=== PATIENT | female | born 1960 | race Caucasian/White ===

== ENCOUNTER 2017-09-04 17:24 | Emergency (ER) | payer BC, OTHER ==
[2017-09-04 19:01] VITALS: BP 150/86
--- NOTE | 2017-09-04 19:29 | ED ---
Breast Complaint - HPI Summary HPI Summary: 57 yr old female with left breast pain: Feels burning, itchy near nipple and thinks she feels a lump, and then worse with touching it and with bra on top of it; she has been choosing cloths carefully so that no increase in pressure on the breast area.. Gradual and worse over a week period of time. Her STOGY ROLLER is out of town and cannot see her this week. She came here for evaluation. No fever, chills. Does not feel sick in any way. - Allergy/Home Medications Allergies/Adverse Reactions: Allergies Allergy/AdvReac Type Severity Reaction Status Date / Time morphine Allergy Intermediate Hives Verified 09/04/17 19:02 Home Medications: Home Medications Venlafaxine CAP (NF) [Effexor CAP (NF)] 75 mg PO DAILY 09/04/17 [History Confirmed 09/04/17] PMH/Surg Hx/FS Hx/Imm Hx Cardiovascular History: Denies: Hx Pacemaker/ICD Sensory History: Denies: Hx Hearing Aid Psychiatric History: Denies: Hx Panic Disorder - Surgical History Surgery Procedure, Year, and Place: 2 C SECTIONS. ANGY LEGS - VARICOSE VEIN. Rt WRIST - GANGLION CYST Infectious Disease History: No Infectious Disease History: Denies: Traveled Outside the [place] in Last 30 Days - Family History Known Family History: Positive: Other - breast cancer - Social History Lives: With Family Alcohol Use: Rare Substance Use Type: Reports: None Smoking Status (MU): Never Smoked Tobacco Review of Systems Negative: Fever, Chills Eyes: Negative ENT: Negative Positive: Other - breast pain All Other Systems Reviewed And Are Negative: Yes Physical Exam Triage Information Reviewed: Yes Vital Signs On Initial Exam: Initial Vitals Temp Pulse Resp BP Pulse Ox 98.1 F 67 18 150/86 98 09/04/17 18:54 09/04/17 18:54 09/04/17 18:54 09/04/17 18:54 09/04/17 18:54 Vital Signs Reviewed: Yes Appearance: Positive: Well-Appearing, No Pain Distress Skin: Positive: Warm, Skin Color Reflects Adequate Perfusion Head/Face: Positive: Normal Head/Face Inspection Eyes: Positive: EOMI ENT: Positive: Normal ENT inspection, TMs normal Neck: Positive: Supple, Nontender Respiratory/Lung Sounds: Positive: Clear to Auscultation, Breath Sounds Present , Other - The breasts examined in the presence of nurse Ramón. They appear symmetric in size, shape. No masses in left axilla or tail of breast can be appreciated by my manual exam. SHe has no redness, no discharge from the nipple. There is a pea size shape lump to the left breast upper aerola area at about the 2 oclock position. Cardiovascular: Positive: RRR. Negative: Murmur Abdomen Description: Positive: Nontender Musculoskeletal: Positive: Strength/ROM Intact Neurological: Positive: Sensory/Motor Intact, Alert, Oriented to Person Place, Time, CN Intact II-III Psychiatric: Positive: Normal - [place] Coma Scale Best Eye Response: 4 - Spontaneous Best Motor Response: 6 - Obeys Commands Best Verbal Response: 5 - Oriented Coma Scale Total: 15 Diagnostics - Vital Signs Vital Signs Temp Pulse Resp BP Pulse Ox 09/04/17 18:54 98.1 F 67 18 150/86 98 - Laboratory Lab Statement: Any lab studies that have been ordered have been reviewed, and results considered in the medical decision making process. Breast Pain Course/Dx - Course Course Of Treatment: 57 yr old female who will call her PMD in the morning for further work up of small pea size lump and her discomfort. At this point no evidence of abscess, cellulitis. It is recommended she go to the ER for any worsening symptoms at all. - Diagnoses Provider Diagnoses: Breast pain, left, Lump of breast, left, Hypertension Discharge - Sign-Out/Discharge Documenting (check all that apply): Discharge/Admit/Transfer - Discharge Plan Condition: Good Disposition: HOME Patient Education Materials: Hypertension (ED), Breast Mass (ED) Referrals: Ambrocio Mccrary MD [Primary Care Provider] - 1 Day Additional Instructions: You need to go to the ER for any worsening symptoms. You need to call you primary care doctor first thing in the morning for follow up and further work up of your breast concern. You also need a recheck of your blood pressure in the next couple of days by your primary doctor. - Billing Disposition and Condition Condition: GOOD Disposition: HOME
== END 2017-09-04 19:48 | disposition home or self-care (01) ==
LOC: UCCORT 17:24
DX: N64.4 Mastodynia (principal); N63.0 Unspecified lump in unspecified breast; I10 Essential (primary) hypertension; Z88.5 Allergy status to narcotic agent
CPT/HCPCS: 99211; G0463

== ENCOUNTER 2018-07-02 14:58 | Emergency (ER) | payer OTHER ==
--- OUTSIDE RECORDS SUMMARY | 2018-07-02 15:55 | XMS REPORT | Continuity of Care Document ---
:1960 External Reference #:[id number] Author Name BienvenidoBhavani lassiter Care Team Providers Name Role Phone Ambrocio Mccrary MD Primary Care Physician Unavailable Payers Type Date Identification Numbers Payment Provider Subscriber Policy Number: [id number] Trey Weller PayID: [id number] [address] [place] [address] Effective: 2017 Policy Number: [id number] Trey Weller PayID: [id number] [address] [place] [phone] Advance Directives Description No Information Available Problems Date Description Provider Status Onset: 10/11/2012 Benign hypertensive heart disease without Colette Wall MD Active congestive heart failure Onset: 10/11/2012 Headache Colette Wall MD Active Onset: 12/18/2012 Arthralgia of the ankle and/or foot Colette Wall MD Active Onset: 03/20/2015 Contact dermatitis Colette Wall MD Active Onset: 03/20/2015 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 Wall MD Active inflammation Family History Date Family Member(s) Problem(s) Comments General Hypertension General Diabetes Mellitus, II General Heart Disease General Cancer Mother Breast Cancer Social History Type Date Description Comments Sex Unknown ETOH Use Occasionally consumes alcohol Tobacco Use Start: Unknown Patient has never smoked Smoking Status Reviewed: 09/07/17 Patient has never smoked Exercise Type/Frequency Exercises regularly Guns in Home Yes, Locked Up Allergies, Adverse Reactions, Alerts Date Description Reaction Status Severity Comments 10/11/2012 Morphine Active Severe Medications Medication Date Status Form Strength Qnty SIG Indications Ordering Provider Cephalexin 09/06 Active Capsules 500mg 14cap 1 by mouth N61.0 Janay /Siria s twice a day Demetra with food Rahul Vitamin D3 06/27 Active Capsules 5000Unit 100ca 1 by mouth E55.9 Ambrocio F. /2016 ps every day MD Demetra Aspirin Adult Low 04/19 Active Tablets 81mg 100ta 1 A Will I80.01 Ambrocio F. Dose /2015 DR kasie Mccrary MD Naproxen 03/15 Active Tablets 500mg 60tab 1 by mouth M23.8x1 Ambrocio F. /2015 s twice a day MD Demetra as needed Jobst Active 03/20 Active Misc 4unit Dx venous Elyn 15-20MMHG/Knee /2014 s insufficiei MD Mae High/Closed ncy Toe/Medium Multivital 10/11 Active Tablets Elyn MD Mae Azithromycin 04/25 Hx Tablets 250mg 6tabs 2 by mouth J20.9 Ambrocio F. /2015 today, 1 by MD Deemtra - mouth day 2 05/04 thru Triamcinolone 03/20 Hx Lotion 0.1% 15gm Small Elyn Acetonide Amount bid MD Mae - To Affected 03/15 Etodolac ER 02/19 Hx Tablets 600mg 724.60 Ambrocio F. /2012 ER 24HR MD Demetra - 02/19 Naproxen 02/19 Hx Tablets 500mg 30tab 1 po bid 724.60 Ambrocio F. /2012 s prn MD Demetra - 03/14 Tramadol HCL 02/19 Hx Tablets 50mg 40tab 1 po q 6 724.60 Ambrocio F. /2012 s hours prjohn Mccrary MD - pain if 03/14 rash stop immediately Naproxen 12/18 Hx Tablets 500mg 60tab tab 1 po El s bid with MD Mae - food 02/19 No Active 10/11 Hx Elyn Medications MD Mae - 10/11 Hydrochlorothiazid 10/11 Hx Tablets 25mg 90tab 1 po qd Elyn e s MD Mae - 07/22 Immunizations CPT Code Status Date Vaccine Lot # [id number] Given 02/21/2015 Influenza Virus (Afluria) Split Virus 3 Years Of Age And Older Q2035 Given 03/14/2013 Influenza Virus (Afluria) Split Virus 3 Years Of Age And Older Q2035 Given 03/14/2013 Influenza Virus (Afluria) Split Virus 3 Years Of Age And Older Vital Signs Date Vital Result Comment 06/13/2018 9:36am Height 64 inches 5'4" Weight 169.00 lb BMI (Body Mass Index) 29.0 kg/m2 09/07/2017 2:22pm BP Systolic 132 mmHg BP Diastolic 78 mmHg Height 64 inches 5'4" Weight 69.00 lb BMI (Body Mass Index) 11.8 kg/m2 09/06/2017 3:04pm BP Systolic 168 mmHg BP Diastolic 94 mmHg Height 64 inches 5'4" Weight 169.00 lb BMI (Body Mass Index) 29.0 kg/m2 06/27/2016 11:26am BP Systolic 128 mmHg BP Diastolic 70 mmHg Height 64 inches 5'4" Weight 175.00 lb BMI (Body Mass Index) 30.0 kg/m2 05/04/2016 11:05am BP Systolic 128 mmHg BP Diastolic 70 mmHg 04/25/2016 2:10pm BP Systolic 118 mmHg BP Diastolic 60 mmHg Body Temperature 97.6 F 04/19/2016 3:51pm BP Systolic 112 mmHg BP Diastolic 60 mmHg Body Temperature 99.1 F 04/05/2016 10:06am BP Systolic 130 mmHg BP Diastolic 80 mmHg 03/15/2016 1:56pm BP Systolic 120 mmHg BP Diastolic 62 mmHg 06/02/2015 11:20am BP Systolic 122 mmHg BP Diastolic 60 mmHg Height 64 inches 5'4" Weight 166.00 lb BMI (Body Mass Index) 28.5 kg/m2 03/23/2015 10:15am BP Systolic 122 mmHg BP Diastolic 60 mmHg 03/20/2015 1:32pm BP Systolic 132 mmHg BP Diastolic 80 mmHg 07/22/2014 2:16pm BP Systolic 110 mmHg BP Diastolic 68 mmHg Height 64 inches 5'4" 03/14/2013 1:51pm BP Systolic 118 mmHg BP Diastolic 68 mmHg Height 64 inches 5'4" 02/19/2013 1:59pm BP Systolic 120 mmHg BP Diastolic 60 mmHg Height 64 inches 5'4" 12/21/2012 9:25am BP Systolic 112 mmHg BP Diastolic 78 mmHg 12/18/2012 10:36am BP Systolic 138 mmHg BP Diastolic 70 mmHg 11/22/2012 1:32pm BP Systolic 120 mmHg BP Diastolic 80 mmHg Height 64 inches 5'4" Weight 188.00 lb BMI (Body Mass Index) 32.3 kg/m2 10/11/2012 12:42pm BP Systolic 120 mmHg BP Diastolic 92 mmHg Height 64 inches 5'4" Weight 187.00 lb BMI (Body Mass Index) 32.1 kg/m2 Results Test Date Facility Test Result H/L Range Note CBS 12/19/2016 [facility] White Blood 7.1 K/uL N 3.1-10.7 1 W/Automated [address] [place] [address] [phone] Red Blood Count 4.80 M/uL N 3.90-5.40 Hemoglobin 15.2 gm/dL N 11.6-15.8 Hematocrit 44.4 % N 36.0-46.1 Mean Cell Volume 92.5 fl N 80.9-99.0 Mean Corpuscular HGB 31.7 pg N 25.9-32.7 Mean Corpuscular HGB Conc 34.2 g/dL N 30.8-34.3 Platelet Count 231 K/uL N 150-400 Red Cell Distri Width SD 46.1 fl N 3-47 Red Cell Distri Width %CV 13.9 % N 11.7-14.4 Mean Platelet Volume 10.5 fL N 8.9-12.4 Neut% 65.9 % N 40.4-72.8 Lymph % 26.2 % N 20.0-42.0 Sioux % 6.4 % N 4.3-13.2 Eo% 1.4 % N 0.0-6.6 Bas% 0.1 % N 0.0-1.1 Neut# 4.65 K/uL N 1.8-7.0 Lymph # 1.85 K/uL N 1.0-4.0 Sioux # 0.45 K/uL N 0.3-0.9 Eos # 0.10 K/uL N 0.0-0.5 Baso # 0.01 K/uL N 0.0-0.1 Urinalysis With 12/19/2016 [facility] Urine Color YELLOW Yellow Microscopic [address] [place] [address] [phone] Urine Clarity CLEAR Clear Urine Glucose - Dipstick NEGATIVE mg/dL Negative Urine Bilirubin - Dipstick NEGATIVE Negative Urine Ketone NEGATIVE mg/dL Negative Urine Specific [place] 1.020 N 1.010-1.030 Urine Blood SMALL Abnormal Negative Urine PH 6.0 Low 6.5-7.5 Urine Protein - Dipstick NEGATIVE mg/dL Negative Urine Urobilinogen - Dipstick 0.2 E.U./dL N 0.2-1.0 Urine Nitrite - Dipstick NEGATIVE Negative Urine Leuk Esterase NEGATIVE Negative Urine RBC 2-5 rbc/hpf 0-2 Urine WBC 2-5 wbc/hpf 0-7 Urine Epithelial Cells MODERATE /lpf None Seen 2 Urine Bacteria FEW None Seen Urine Mucus SMALL None Seen Source: URINE, CLEAN CAT <SEE NOTE> 3 Comprehensive Metabolic 12/19/2016 [facility] Glucose 93 mg/dL N 74-[address] [place] [address] [phone] BUN 8 mg/dL N 7-18 Creatinine 0.8 mg/dL N 0.6-1.3 Glom Filtration Rate, Estimate >60 mL/min >60 If >60 mL/min >60 4 BUN/Creat 10.0 ratio Sodium 142 mmol/L N 136-145 Potassium 4.2 mmol/L N 3.5-5.1 Chloride 105 mmol/L N 98-107 Carbon Dioxide 30 mmol/L N 21-32 Anion Gap 7 mEq/L Low 8-16 Calcium 9.0 mg/dL N 8.5-10.1 Total Protein 7.6 g/dL N 6.4-8.2 Albumin 3.7 g/dL N 3.4-5.0 Globulin 3.9 g/dL N 1.9-4.3 Alb/Glob 0.9 ratio Bilirubin,Total 0.6 mg/dL N 0.2-1.0 Sgot/Ast 18 U/L N 15-37 SGPT/Alt 21 U/L N 12-78 Alkaline Phosphatase 94 U/L N 45-117 Laboratory test 12/19/2016 [facility] Lipase 137 U/L N 73-[address] [place] [address] [phone] HCG,Serum (Qualitative) NEGATIVE (Negative) 5 Laboratory 12/19/2016 [facility] Occult POSITIVE Abnormal Negative 6 test finding [address] Blood,[place] [address] [phone] CBC W/ Diff & 06/22/2016 [facility] White Blood 4.4 K /uL N 3.1-10.7 [address] [place] [address] [phone] Red Blood Count 4.68 M/uL N 3.90-5.40 Hemoglobin 14.9 gm/dL N 11.6-15.8 Hematocrit 43.8 % N 36.0-46.1 Mean Cell Volume 93.6 fl N 80.9-99.0 Mean Corpuscular HGB 31.8 pg N 25.9-32.7 Mean Corpuscular HGB Conc 34.0 g/dL N 30.8-34.3 Platelet Count 240 K/uL N 155-360 Red Cell Distri Width SD 47.0 fl N 3-47 Red Cell Distri Width %CV 14.1 % N 11.7-14.4 Mean Platelet Volume 11.3 fL N 8.9-12.4 Neut% 52.1 % N 40.4-72.8 Lymph % 35.6 % N 20.0-42.0 Sioux % 8.2 % N 4.3-13.2 Eo% 3.4 % N 0.0-6.6 Bas% 0.7 % N 0.0-1.1 Neut# 2.30 K/uL N 1.8-7.0 Lymph # 1.57 K/uL N 1.0-4.0 Sioux # 0.36 K/uL N 0.3-0.9 Eos # 0.15 K/uL N 0.0-0.5 Baso # 0.03 K/uL N 0.0-0.1 Comprehensive Metabolic 06/22/2016 [facility] Glucose 88 mg/dL N 74-[address] [place] [address] [phone] BUN 15 mg/dL N 7-18 Creatinine 0.8 mg/dL N 0.6-1.3 Glom Filtration Rate, Estimate >60 mL/min >60 If >60 mL/min >60 8 BUN/Creat 18.7 ratio Sodium 143 mmol/L N 136-145 Potassium 4.1 mmol/L N 3.5-5.1 Chloride 106 mmol/L N 98-107 Carbon Dioxide 30 mmol/L N 21-32 Anion Gap 7 mEq/L Low 8-16 Calcium 8.8 mg/dL N 8.5-10.1 Total Protein 7.4 g/dL N 6.4-8.2 Albumin 3.7 g/dL N 3.4-5.0 Globulin 3.7 g/dL N 1.9-4.3 Alb/Glob 1.0 ratio Bilirubin,Total 0.6 mg/dL N 0.2-1.0 Sgot/Ast 19 U/L N 15-37 SGPT/Alt 28 U/L N 12-78 Alkaline Phosphatase 79 U/L N 45-117 LDL Cholesterol 06/22/2016 [facility] Cholesterol 247 mg/dL High <200 [address] [place] [address] [phone] Triglycerides 79 mg/dL <150 10 HDL Cholesterol 76 mg/dL >40 11 LDL-Cholesterol 155 mg/dL < 100 12 Laboratory test 06/22/2016 [facility] Thyroid Stim 1.31 uIU/mL N 0.30-4.[address] Hormone [place], [place] [id number] [phone] Free T4 0.87 ng/dL N 0.76-1.46 Laboratory 06/22/2016 [facility] Vitamin 28.1 Low 30.0-100.0 13 test finding [address] D,25-Hydroxy ng/[place] [address] [phone] Laboratory 04/05/2016 [facility] C-Reactive 1.29 N <3.0 14 test finding [address] Protein,Cardiac mg/[place] [address] [phone] Uric Acid 3.7 mg/dL N 2.6-6.0 Rheumatoid Factor Screen < 10.0 IU/mL N 0.0-15.0 CBS W/Automated 04/05/2016 [facility] White Blood 6.0 K/uL N 3.1-10.[address] [place] [address] [phone] Red Blood Count 4.80 M/uL N 3.90-5.40 Hemoglobin 15.0 gm/dL N 11.6-15.8 Hematocrit 44.7 % N 36.0-46.1 Mean Cell Volume 93.1 fl N 80.9-99.0 Mean Corpuscular HGB 31.3 pg N 25.9-32.7 Mean Corpuscular HGB Conc 33.6 g/dL N 30.8-34.3 Platelet Count 284 K/uL N 155-360 Red Cell Distri Width SD 46.0 fl N 3-47 Red Cell Distri Width %CV 13.8 % N 11.7-14.4 Mean Platelet Volume 11.5 fL N 8.9-12.4 Neut% 50.4 % N 40.4-72.8 Lymph % 39.1 % N 17.0-46.1 Sioux % 6.4 % N 4.3-13.2 Eo% 3.3 % N 0.0-6.6 Bas% 0.8 % N 0.0-1.1 Neut# 3.01 K/uL N 1.8-7.0 Lymph # 2.34 K/uL N 1.8-7.0 Sioux # 0.38 K/uL N 0.3-0.9 Eos # 0.20 K/uL N 0.0-0.5 Baso # 0.05 K/uL N 0.0-0.1 Laboratory 04/05/2016 [facility] Sedimentation 4 mm/ hr N 0-30 test finding [address] Rate [place], [place] [id number] [phone] Hepatitis C 04/05/2016 [facility] Hepatitis C Nonreactive N Nonreactive Antibody [address] Antibody [place], [place] [address] [phone] Signal/Cutoff ratio < 0.02 N <0.80 15 Laboratory 04/05/2016 [facility] Anti-Nuclear Negative N Negative 16 test finding [address] Antibodies AU/[place] [address] Direct [phone] Basic 05/30/2015 [facility] Glucose 89 mg/dL 74- [address] Panel [place], [place] [address] [phone] BUN 12 mg/dL 7-18 Creatinine 0.7 mg/dL 0.6-1.3 Glom Filtration Rate, Estimate >60 mL/min >60 If >60 mL/min >60 17 BUN/Creat 17.1 ratio Sodium 139 mmol/L 136-145 Potassium 4.0 mmol/L 3.5-5.1 Chloride 105 mmol/L 98-107 Carbon Dioxide 30 mmol/L 21-32 Anion Gap 4 mEq/L Low 8-16 Calcium 8.5 mg/dL 8.5-10.1 LDL Cholesterol 05/30/2015 [facility] Cholesterol 183 mg/dL <200 [address] [place] [address] [phone] Triglycerides 88 mg/dL <150 19 HDL Cholesterol 64 mg/dL >40 20 LDL-Cholesterol 101 mg/dL < 100 21 CBS W/Automated 05/30/2015 [facility] White Blood 4.4 K/uL 3.1-10.[address] Count [place], [place] [address] [phone] Red Blood Count 4.59 M/uL 3.90-5.40 Hemoglobin 14.4 gm/dL 11.6-15.8 Hematocrit 42.7 % 36.0-46.1 Mean Cell Volume 93.0 fl 80.9-99.0 Mean Corpuscular HGB 31.4 pg 25.9-32.7 Mean Corpuscular HGB Conc 33.7 g/dL 30.8-34.3 Platelet Count 232 K/uL 155-360 Red Cell Distri Width SD 45.2 fl 3-47 Red Cell Distri Width %CV 13.6 % 11.7-14.4 Mean Platelet Volume 10.6 fL 8.9-12.4 Neut% 50.7 % 40.4-72.8 Lymph % 40.0 % 17.0-46.1 Sioux % 6.3 % 4.3-13.2 Eo% 2.5 % 0.0-6.6 Bas% 0.5 % 0.0-1.1 Neut# 2.24 K/uL 1.8-7.0 Lymph # 1.77 K/uL Low 1.8-7.0 Sioux # 0.28 K/uL Low 0.3-0.9 Eos # 0.11 K/uL 0.0-0.5 Baso # 0.02 K/uL 0.0-0.1 Laboratory 05/30/2015 [facility] Vitamin 20.8 Low 30.0-100.0 22 test finding [address] D,25-Hydroxy ng/[place] [address] [phone] Laboratory 05/30/2015 [facility] Thyroid Stim 1.30 0.36-3.74 test finding [address] Hormone uIU/[place] [address] [phone] Free T4 0.82 ng/dL 0.76-1.46 Laboratory test 08/22/2013 [facility] Polyp Colon And/ Or See Note [address] [place] [address] [phone] Laboratory test 12/18/2012 [facility] Sedimentation Rate 7 mm/hr 0-[address] [place] [address] [phone] CBC W/ Diff & 12/18/2012 [facility] White Blood Count 5.4 K/uL 3.1-[address] 0[address]7 [place] [address] [phone] Red Blood Count 4.65 M/uL 3.90-5.40 Hemoglobin 14.5 gm/dL 11.6-15.8 Hematocrit 42.9 % 36.0-46.1 Mean Cell Volume 92.3 fl 80.9-99.0 Mean Corpuscular HGB 31.2 pg 25.9-32.7 Mean Corpuscular HGB Conc 33.8 g/dL 30.8-34.3 Platelet Count 257 K/uL 155-360 Red Cell Distri Width SD 44.9 fl 3-47 Red Cell Distri Width %CV 13.5 % 11.7-14.4 Mean Platelet Volume 10.6 fL 8.9-12.4 Neut% 57.4 % 40.4-72.8 Lymph % 31.7 % 17.0-46.1 Sioux % 8.0 % 4.3-13.2 Eo% 2.0 % 0.0-6.6 Bas% 0.9 % 0.0-1.1 Neut# 3.09 K/uL 1.0-7.0 Lymph # 1.71 K/uL 0.8-3.4 Sioux # 0.43 K/uL 0.3-0.9 Eos # 0.11 K/uL 0.0-0.5 Baso # 0.05 K/uL 0.0-0.1 Lyme Igg & Igm By 12/18/2012 [facility] Lyme AB Igg By . Western Blot [address] [place] [place] [address] [phone] P93 AB Absent . P66 AB Absent . P58 AB Absent . P45 AB Absent . P41 AB Absent . P39 AB Absent . P30 AB Absent . P28 AB Absent . P23 AB Absent . P18 AB Absent . Lyme Igg WB Interpretation Negative . 24 Lyme AB Igm By Western Blot . P41 AB Absent . P39 AB Absent . P23 AB Absent . Lyme Igm WB Interpretation Negative . 25 CBS W/Automated 11/14/2012 [facility] White Blood 5.2 K/uL 3.1-10.[address] Count [place], [place] [address] [phone] Red Blood Count 4.79 M/uL 3.90-5.40 Hemoglobin 14.9 gm/dL 11.6-15.8 Hematocrit 44.6 % 36.0-46.1 Mean Cell Volume 93.1 fl 80.9-99.0 Mean Corpuscular HGB 31.1 pg 25.9-32.7 Mean Corpuscular HGB Conc 33.4 g/dL 30.8-34.3 Platelet Count 253 K/uL 155-360 Red Cell Distri Width SD 44.4 fl 3-47 Red Cell Distri Width %CV 13.3 % 11.7-14.4 Mean Platelet Volume 11.2 fL 8.9-12.4 Neut% 51.3 % 40.4-72.8 Lymph % 34.8 % 17.0-46.1 Sioux % 8.5 % 4.3-13.2 Eo% 4.4 % 0.0-6.6 Bas% 1.0 % 0.0-1.1 Neut# 2.65 K/uL 1.0-7.0 Lymph # 1.80 K/uL 0.8-3.4 Sioux # 0.44 K/uL 0.3-0.9 Eos # 0.23 K/uL 0.0-0.5 Baso # 0.05 K/uL 0.0-0.1 Laboratory test 11/14/2012 [facility] Bilirubin, Direct 0.1 mg/dL 0.1-0.[address] [place] [address] [phone] Thyroid Stim Hormone 1.67 uIU/mL 0.49-4.67 Free T4 1.03 ng/dL 0.71-1.85 Comprehensive Metabolic 11/14/2012 [facility] Glucose 91 mg/dL 76-[address] [place] [address] [phone] BUN 12 mg/dL 5-23 Creatinine 0.9 mg/dL 0.5-1.4 Glom Filtration Rate, Estimate >60 mL/min >60 If >60 mL/min >60 26 BUN/Creat 13.3 ratio Sodium 142 mmol/L 136-145 Potassium 3.8 mmol/L 3.5-5.1 Chloride 103 mmol/L 98-107 Carbon Dioxide 28 mEq/L 18-29 Anion Gap 15 mEq/L 8-16 Calcium 8.9 mg/dL 8.5-10.1 Total Protein 7.7 g/dL 6.3-8.0 Albumin 3.8 g/dL 3.5-5.0 Globulin 3.9 g/dL 1.9-4.3 Alb/Glob 1.0 ratio Bilirubin,Total 0.7 mg/dL 0.2-1.2 Sgot/Ast 15 U/L Low 16-40 SGPT/Alt 25 U/L Low 30-65 Alkaline Phosphatase 94 U/L 50-136 Laboratory test 11/14/2012 [facility] Vitamin 28.8 Low 30.0-100.0 [address] D,25-Hydroxy ng/[place] [address] [phone] LDL Cholesterol 11/14/2012 [facility] Cholesterol 210 High 120-[address] mg/[place] [address] [phone] Triglycerides 100 mg/dL 16-231 HDL Cholesterol 62 mg/dL 29-83 LDL-Cholesterol 128 mg/dL 62-185 1 DIARRHEA, PASSING BLOOD, ABD PAIN 2 POSSIBLE UROGENITAL CONTAMINATION. 3 URINE, CLEAN CATCH 4 Note: Persistent reduction for 3 months or more in an eGFR <60 mL/min/1.73 m2 defines CKD. Patients with eGFR values >/=60 mL/min/1.73 m2 may also have CKD if evidence of persistent proteinuria is present. The original MDRD equation for estimated GFR is not valid for patients less than 18 years of age. Additional information may be found at www.kdoqi.org. 5 Method: Quidel QuickVue One-Step Immunoassay 6 Method: [employer] Hemoccult Card 7 I11.9 E78.2 8 Note: Persistent reduction for 3 months or more in an eGFR <60 mL/min/1.73 m2 defines CKD. Patients with eGFR values >/=60 mL/min/1.73 m2 may also have CKD if evidence of persistent proteinuria is present. The original MDRD equation for estimated GFR is not valid for patients less than 18 years of age. Additional information may be found at www.kdoqi.org. 9 Reference Guidelines*: Desirable: ........... < 200 mg/dL Borderline High: ..... 200-239 mg/dL High: ................ >=240 mg/dL * The National Cholesterol Education Program (NCEP) 10 Reference Guidelines*: Normal: ............. < 150 mg/dL Borderline High: .... 150-199 mg/dL High: ............... 200-499 mg/dL Very High: .......... > 500 mg/dL * Source: National Cholesterol Education Program (NCEP) 11 Reference Guidelines*: Low HDL: ..... < 40 mg/dL Normal: ..... 40-60 mg/dL Desirable: ... > 60 mg/dL *The National Cholesterol Education Program(NCEP) 12 Reference Guidelines*: Optimal:........... <100 mg/dL Near Optimal....... 100-129 mg/dL Borderline High.... 130-159 mg/dL High............... 160-189 mg/dL Very High.......... >=190 mg/dL * Source: National Cholesterol Education Program (NCEP) 13 Vitamin D deficiency has been defined by the [place] of [employer] and an Endocrine Society practice guideline as a level of serum 25-OH vitamin D less than 20 ng/mL (1,2). The Endocrine Society went on to further define vitamin D insufficiency as a level between 21 and 29 ng/mL (2). 1. IOM ([place] [employer]). 2010. Dietary reference intakes for calcium and D. [place]: The National Academies Press. 2. Chuy MF, Makenzie FISHER, Jama LANG, et al. Evaluation, treatment, and prevention of vitamin D deficiency: an Endocrine Society clinical practice guideline. JCEM. 2010; 96(7):1911-30. Performed at: - [facility] [address] [id number] Aerotriangulation Specialist: Laura Gregory MD, Phone: [phone] W46.0XXD M23.8X1 I11.9 15 Antibodies to HCV not detected; does not exclude early acute HCV infection. 16 Performed at: [facility] [address] [id number] Aerotriangulation Specialist: Laura Gregory MD, Phone: [phone] 17 Note: Persistent reduction for 3 months or more in an eGFR <60 mL/min/1.73 m2 defines CKD. Patients with eGFR values >/=60 mL/min/1.73 m2 may also have CKD if evidence of persistent proteinuria is present. The original MDRD equation for estimated GFR is not valid for patients less than 18 years of age. Additional information may be found at www.kdoqi.org. 18 Reference Guidelines*: Desirable: ........... < 200 mg/dL Borderline High: ..... 200-239 mg/dL High: ................ >=240 mg/dL * The National Cholesterol Education Program (NCEP) 19 Reference Guidelines*: Normal: ............. < 150 mg/dL Borderline High: .... 150-199 mg/dL High: ............... 200-499 mg/dL Very High: .......... > 500 mg/dL * Source: National Cholesterol Education Program (NCEP) 20 Reference Guidelines*: Low HDL: ..... < 40 mg/dL Normal: ..... 40-60 mg/dL Desirable: ... > 60 mg/dL *The National Cholesterol Education Program(NCEP) 21 Reference Guidelines*: Optimal:........... <100 mg/dL Near Optimal....... 100-129 mg/dL Borderline High.... 130-159 mg/dL High............... 160-189 mg/dL Very High.......... >=190 mg/dL * Source: National Cholesterol Education Program (NCEP) 22 Vitamin D deficiency has been defined by the [place] [employer] and an Endocrine Society practice guideline as a level of serum 25-OH vitamin D less than 20 ng/mL (1,2). The Endocrine Society went on to further define vitamin D insufficiency as a level between 21 and 29 ng/mL (2). 1. IOM ([place] [employer]). 2010. Dietary reference intakes for calcium and D. [place]: The National Academies Press. 2. Chuy MF, Makenzie [place], Jama LANG, et al. Evaluation, treatment, and prevention of vitamin D deficiency: an Endocrine Society clinical practice guideline. JCEM. 2010; 96(7):1911-30. Performed at: RN - [facility] [address] [id number] Aerotriangulation Specialist: Laura Gregory MD, Phone: [phone] OPERATION/PROCEDURE Colonoscopy DIAGNOSIS: "SIGMOID COLON, POLYPECTOMY": EARLY HYPERPLASTIC POLYPS. Bekah GROSS "SIGMOID POLYPS". The specimen is received in an appropriately labeled container. This contains three rounded shukla colored pieces of soft tissue measuring up to 0.5 cm.; filtered and submitted in toto within a single cassette. HW/clf MICROSCOPIC Sections show colonic mucosa with tubular glands lined by goblet type columnar cells with increased mucin production. The glands have an incomplete stellate appearance. PRE OPERATIVE DIAGNOSIS Screening colonoscopy REVIEW CODE CODE: I Signed Electronically signed ARABELLA ASHLEY MD 08/26/13 [id number] 24 Positive: 5 of the following Borrelia-specific bands: 18,23,28,30,39,41,45,58, 66, and 93. Negative: No bands or banding patterns which do not meet positive criteria. 25 Note: An equivocal or positive EIA result followed by a negative Western Blot result is considered NEGATIVE. An equivocal or positive EIA result followed by a positive Western Blot is considered POSITIVE by the CDC. Positive: 2 of the following bands: 23,39 or 41 Negative: No bands or banding patterns which do not meet positive criteria. Criteria for positivity are those recommended by CDC/ASTPHLD. p23=Osp C, q28=uwrkfmiby Note: Sera from individuals with the following may cross react in the Lyme Western Blot assays: other spirochetal diseases (periodontal disease, leptospirosis, relapsing fever, yaws, and pinta); connective autoimmune (Rheumatoid Arthritis and Systemic Lupus Erythematosus and also individuals with Antinuclear Antibody); other infections ([place] Spotted Fever; Nik-Hernandez Virus, and Cytomegalovirus). Performed at: [address] [id number] Aerotriangulation Specialist: Laura Gregory MD, Phone: [phone] 26 Note: Persistent reduction for 3 months or more in an eGFR <60 mL/min/1.73 m2 defines CKD. Patients with eGFR values >/=60 mL/min/1.73 m2 may also have CKD if evidence of persistent proteinuria is present. The original MDRD equation for estimated GFR is not valid for patients less than 18 years of age. Additional information may be found at www.kdoqi.org. 27 Vitamin D deficiency has been defined by the [place] of [employer] and an Endocrine Society practice guideline as a level of serum 25-OH vitamin D less than 20 ng/mL (1,2). The Endocrine Society went on to further define vitamin D insufficiency as a level between 21 and 29 ng/mL (2). 1. IOM ([place] of [employer]). 2010. Dietary reference intakes for calcium and D. [place]: The National Academies Press. 2. Chuy MF, Makenzie FISHER, Jama LANG, et al. Evaluation, treatment, and prevention of vitamin D deficiency: an Endocrine Society clinical practice guideline. JCEM. 2010; 96(7):1911-30. Performed at: RN - [facility] [address] [id number] Aerotriangulation Specialist: Laura Gregory MD, Phone: [phone] Procedures Date Code Description Status 06/22/2016 24262 Spirometry Graphic Record/Max Voluntary Vent Completed 06/22/2016 07692 EKG-Tracing & Report Completed 06/21/2016 06652 Holter Monitor Office Completed 06/09/2016 76322 Dxa Bone Density [employer] Vertebral Fracture Completed Assessment 06/09/2016 006226989 Bone Mineral Density Test Completed 06/06/2016 26982 Non-Invcorrotid/Comp /Bilat Study Completed 06/06/2016 83679 Echocardiography Completed 06/02/2015 48436 Echocardiography Completed 05/27/2015 65791 Non-Invcorrotid/Comp /Bilat Study Completed 05/21/2015 49957 Echocardiography Completed 05/21/2015 61284 Holter Monitor Office Completed 05/21/2015 94793 EKG-Tracing & Report Completed 05/21/2015 05595 [employer]xa [employer] Vertebral Fracture Completed Assessment 08/22/2013 46069171 Colonoscopy Completed 03/07/2013 55378 Bone Density Completed 12/18/2012 80167 Non/Inv/Extremities. Dop/Venous Flow Global Fee Completed Encounters Type Date Location Provider Dx Diagnosis Office Visit 09/07/2017 Main Office Janay Mccrary M.D. N61.0 Mastitis without 2:15p abscess Office Visit 09/06/2017 Main Office Janay Mccrary M.D. N61.0 Mastitis without 3:00p abscess N63.22 Unspecified lump in the left breast, upper inner quadrant Office Visit 06/27/2016 11:20a Main Office Ambrocio Mccrary, E78.2 Mixed hyperlipidemia I34.0 Nonrheumatic mitral (valve) insufficiency I65.23 Occlusion and stenosis of bilateral carotid arteries E55.9 Vitamin D deficiency, unspecified Office Visit 05/04/2016 10:40a Main Office Ambrocio Mccrary I80.01 Phlebitis and thombophlb of superfic vessels of r low extrem M19.90 Unspecified osteoarthritis, unspecified site Office Visit 04/25/2016 2:10p Main Office Ambrocio Mccrary, J20.9 Acute bronchitis, MD unspecified I80.01 Phlebitis and thombophlb of superfic vessels of r low extrem I11.9 Hypertensive heart disease without heart failure Office Visit 04/05/2016 10:00a Main Office Ambrocio Mccrary, M23.8x1 Other internal MD derangements of right knee Office Visit 03/15/2016 1:50p Main Office Ambrocio Mccrary, M23.8x1 Other internal MD derangements of right knee I11.9 Hypertensive heart disease without heart failure Office Visit 06/02/2015 11:20a Main Office Ambrocio Mccrary, M81.0 Age- related MD osteoporosis w/o current pathological fracture I34.0 Nonrheumatic mitral (valve) insufficiency I11.9 Hypertensive heart disease without heart failure I83.11 Varicose veins of right lower extremity with inflammation L30.9 Dermatitis, unspecified Office Visit 04/20/2015 11:30a Main Office Ambrocio Mccrary I83.11 Varicose veins of right lower extremity with inflammation L30.9 Dermatitis, unspecified Office Visit 03/23/2015 10:00a Main Office Ambrocio Mccrary I83.11 Varicose veins of right lower extremity with inflammation L30.9 Dermatitis, unspecified Office Visit 03/20/2015 1:30p Main Office Colette Wall MD L30.9 Dermatitis, unspecified I83.11 Varicose veins of right lower extremity with inflammation Office Visit 07/22/2014 2:10p Main Office Ambrocio Mccrary MD GENERAL General 300.02 Anxiety Disorder Generalized 784.00 Headache 627.2 Menopausal Or Female Climacteric State, Symptomatic 272.4 Hyperlipidemia Other Unspec 785.2 Murmur Cardiac Undiagnosed Office Visit 03/14/2013 1:45p Main Office Colette Wall MD 724.60 Lumbar Disc Disease 733.90 Osteopenia Unspec V04.81 Need For Prophylactic Vaccination & Inoculation/Influenza GENERAL General Office Visit 02/19/2013 1:50p Main Office Ambrocio Mccrary MD 724.60 Lumbar Disc Disease 847.30 Low Back Strain Office Visit 12/21/2012 9:15a Main Office Colette Wall MD 719.47 Pain Joint Ankle & Foot 454.90 Varicose Veins-Lower Extremities GENERAL General Office Visit 12/18/2012 10:15a Main Office Colette Wall MD 719.47 Pain Joint Ankle & Foot 709.90 Skin Lesion/Lesions GENERAL General Office Visit 11/22/2012 1:30p Main Office Colette Wall MD 402.10 Hypertensive Heart Disease Benign W/O Heart Failure 784.0 Headache 272.4 Hyperlipidemia Other Unspec V72.2 Examination Dental V72.0 Examination Eyes & Vision V70.0 Examination General Medical Routine AT Health Care Facility 268.9 Vitamin D Deficiency Unspec GENERAL General Office Visit 10/11/2012 12:45p Main Office Colette Wall MD 402.10 Hypertensive Heart Disease Benign W/O Heart Failure 784.0 Headache GENERAL General Plan of Treatment 09/07/2017 - Janay Mccrary M.D.N61.0 Mastitis without abscessComments: antibiotics over weekend and refer to [facility] if not better
[2018-07-02 16:24] VITALS: BP 128/86
--- NOTE | 2018-07-02 16:25 | UC ---
Throat Pain/Nasal David HPI - HPI Summary HPI Summary: 58-year-old female comes in with a chief complaint of right tonsillar swelling and pain. Been going on about 2 days. She hasn't had some difficulty swallowing for the last several weeks or months. She feels like she has are times swallowing in the back of her throat. She has a history of tonsillar stones. No fevers. She is able to eat and drink. No complaint of any inability to breathe. - History of Current Complaint Stated Complaint: SWOLLEN TONSIL Time Seen by Provider: 07/02/18 16:07 Hx Last Menstrual Period: AUGUST 27, 2012 - Allergies/Home Medications Allergies/Adverse Reactions: Allergies Allergy/AdvReac Type Severity Reaction Status Date / Time morphine Allergy Intermediate Hives Verified 07/02/18 16:24 PMH/Surg Hx/FS Hx/Imm Hx Previously Healthy: Yes - Surgical History Surgical History: Yes Surgery Procedure, Year, and Place: 2 C SECTIONS. ANGY LEGS - VARICOSE VEIN. Rt WRIST - GANGLION CYST - Family History Known Family History: Positive: Other - breast cancer - Social History Alcohol Use: Rare Substance Use Type: None Smoking Status (MU): Never Smoked Tobacco Review of Systems All Other Systems Reviewed And Are Negative: Yes Constitutional: Positive: Negative Skin: Positive: Negative Eyes: Positive: Negative ENT: Positive: Sore Throat Respiratory: Positive: Negative. Negative: Shortness Of Breath Cardiovascular: Positive: Negative Gastrointestinal: Positive: Negative Motor: Positive: Negative Neurovascular: Positive: Negative Musculoskeletal: Positive: Negative Neurological: Positive: Negative Psychological: Positive: Negative Physical Exam Triage Information Reviewed: Yes Appearance: Well-Appearing, No Pain Distress, Well-Nourished Vital Signs Reviewed: Yes Eye Exam: Normal Eyes: Positive: Conjunctiva Clear ENT: Positive: TMs normal, Tonsillar swelling - right, Tonsillar exudate - right , Uvula midline - No peritonsillar abscess on exam Neck exam: Normal Neck: Positive: Supple Respiratory: Positive: Lungs clear, Normal breath sounds, No respiratory distress Cardiovascular: Positive: RRR Musculoskeletal Exam: Normal Musculoskeletal: Positive: Strength Intact, ROM Intact Neurological Exam: Normal Neurological: Positive: Alert, Muscle Tone Normal Psychological Exam: Normal Psychological: Positive: Age Appropriate Behavior Skin Exam: Normal Throat Pain/Nasal Course/Dx - Course Course Of Treatment: We will treat with Augmentin. Overall, due to the difficulty swallowing for several months, the plan is to follow-up with Dr. Leary the ENT. Patient reports that she's been seen Dr. Leary and the plastic past and prefers to follow-up with him. If she worsens prior that time that she needs reevaluation right away. - Differential Dx/Diagnosis Provider Diagnosis: Tonsillitis, Tonsillolith Discharge - Sign-Out/Discharge Documenting (check all that apply): Patient Departure All imaging exams completed and their final reports reviewed: No Studies - Discharge Plan Condition: Stable Disposition: HOME Prescriptions: Amoxicillin/Clavulanate TAB* [Augmentin TAB 875*] 875 mg PO BID #20 tab Patient Education Materials: Tonsillitis (ED) Referrals: Ambrocio Mccrary MD [Primary Care Provider] - Andres Leary MD [Medical Doctor] - Additional Instructions: FOLLOW UP WITH ENT, DR LEARY. GET RECHECKED FOR ANY WORSENING OF YOUR CONDITION OR QUESTIONS OR CONCERNS. - Billing Disposition and Condition Condition: STABLE Disposition: Home
== END 2018-07-02 16:39 | disposition home or self-care (01) ==
LOC: UCCORT 14:58
DX: J03.90 Acute tonsillitis, unspecified (principal); Z88.5 Allergy status to narcotic agent
CPT/HCPCS: 99212; G0463

== ENCOUNTER 2018-11-06 10:07 | Emergency (ER) | payer OTHER ==
[2018-11-06 10:30] VITALS: BP 145/87
[2018-11-06] MEDS ORDERED: Albuterol 2.5 MG/3 ML NEB.SOL* (0.083%) INH ONE (11:09)
--- NOTE | 2018-11-06 11:09 | UC ---
General HPI - HPI Summary HPI Summary: pt c/o cough x 6 months. recently raising green and occasional black sputum in am upon waking. no fever, chills or weight loss. non smoker. prior hx asthma but had been doing better [place]. works as stylist and cleans homes. "feels similar to the asthma" - History of Current Complaint Chief Complaint: UCRespiratory Stated Complaint: COUGH Time Seen by Provider: 11/06/18 11:00 Hx Obtained From: Patient Hx Last Menstrual Period: AUGUST 27, 2012 Onset/Duration: Gradual Onset Timing: Constant Pain Intensity: 0 Associated Signs & Symptoms: Positive: Cough. Negative: Chest Pain, Fever, SOB , Wheezing - Allergy/Home Medications Allergies/Adverse Reactions: Allergies Allergy/AdvReac Type Severity Reaction Status Date / Time morphine Allergy Intermediate Hives Verified 11/06/18 10:24 Home Medications: Home Medications Cough Medication PRN 11/06/18 [History] diphenhydrAMINE HCl [Allergy Medication] 25 mg PO DAILY PRN 11/06/18 [History Confirmed 11/06/18] PMH/Surg Hx/FS Hx/Imm Hx Respiratory History: Asthma - Surgical History Surgical History: Yes Surgery Procedure, Year, and Place: 2 C SECTIONS. ANGY LEGS - VARICOSE VEIN. Rt WRIST - GANGLION CYST - Family History Known Family History: Positive: Other - breast cancer - Social History Occupation: Employed Full-time Lives: With Family Alcohol Use: Rare Substance Use Type: None Smoking Status (MU): Never Smoked Tobacco - Immunization History Vaccination Up to Date: Yes Review of Systems All Other Systems Reviewed And Are Negative: Yes Constitutional: Negative: Fever, Chills, Fatigue Respiratory: Positive: Cough. Negative: Shortness Of Breath Cardiovascular: Negative: Palpitations, Chest Pain Physical Exam Triage Information Reviewed: Yes Appearance: Well-Appearing Vital Signs: Initial Vital Signs Temp 97.9 F 11/06/18 10:26 Pulse 64 11/06/18 10:26 Resp 16 11/06/18 10:26 BP 145/87 11/06/18 10:26 Pulse Ox 99 11/06/18 10:26 Vital Signs Reviewed: Yes Eyes: Positive: Conjunctiva Clear ENT: Positive: Pharynx normal, TMs normal. Negative: Nasal congestion, Nasal drainage Neck: Positive: Supple, Nontender, No Lymphadenopathy Respiratory: Positive: No respiratory distress, Decreased breath sounds, Other: - NPC. Negative: Crackles, Rhonchi, Wheezing Cardiovascular: Positive: RRR, No Murmur Abdomen Description: Positive: Nontender Bowel Sounds: Positive: Present Musculoskeletal: Positive: ROM Intact Neurological: Positive: Alert Psychological: Positive: Age Appropriate Behavior Skin Exam: Normal Diagnostics - Radiology No standard instances Radiology Interpretation Completed By: Radiologist - IMPRESSION: NO EVIDENCE FOR ACTIVE CARDIOPULMONARY DISEASE. Re-Evaluation - Re-Evaluation First Eval Re-Evaluation Time: 11:53 Change: Improved - better aeration. pt feels breathing easier and cough is more loose. Course/Dx - Differential Dx - Multi-Symptom Differential Diagnoses: Other - cxr=nad. better with albuterol tx. given duration, will tx with po steroid, albuterol and zithromax. - Diagnoses Provider Diagnosis: Bronchospasm Discharge - Sign-Out/Discharge Documenting (check all that apply): Patient Departure All imaging exams completed and their final reports reviewed: No Studies - Discharge Plan Condition: Stable Disposition: HOME Prescriptions: Albuterol HFA INHALER* [Ventolin HFA Inhaler*] 2 puff INH Q6H #1 mdi Azithromycin TAB* [Zithromax TAB (Z-MYRNA) 250 mg #6 tabs] 2 tab PO .TODAY, THEN 1 DAILY #1 myrna predniSONE [Prednisone 20 MG TAB] 40 mg PO DAILY 5 Days #10 tablet Patient Education Materials: Bronchospasm (ED) Referrals: Ambrocio Mccrary MD [Primary Care Provider] - 7 Days - Billing Disposition and Condition Condition: STABLE Disposition: Home
== END 2018-11-06 12:02 | disposition home or self-care (01) ==
LOC: UCCORT 10:07
DX: J98.01 Acute bronchospasm (principal)
CPT/HCPCS: 71046; 99212; G0463

== ENCOUNTER 2019-04-12 09:08 | Emergency (ER) | payer OTHER ==
--- NOTE | 2019-04-12 10:17 | UC ---
Respiratory Complaint HPI - HPI Summary HPI Summary: 59-year-old female comes in with chief complaints of dry cough for one year, difficulty swallowing solid food for several weeks, and change in voice for the last couple of weeks, and hemoptysis in the last couple days. Patient has a history of DVT. She has bilateral edema however it's worse on the left than the right. No fevers or chills no GERD symptoms. No history of asthma. 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 In the past she's been treated for bronchitis with antibiotics and inhalers and steroids. Most recent time she was treated she feels the steroid did not help. She had a chest x-ray that was normal in October 2018. Hemoptysis is sputum with streaks of black and it. Patient has been feeling fatigued. - History of Current Complaint Chief Complaint: UCGeneralIllness Stated Complaint: CHEST CONGESTION, COUGH Time Seen by Provider: 04/12/19 09:40 Hx Last Menstrual Period: doesn't get Pain Intensity: 0 - Allergies/Home Medications Allergies/Adverse Reactions: Allergies Allergy/AdvReac Type Severity Reaction Status Date / Time morphine Allergy Intermediate Hives Verified 11/06/18 10:24 PMH/Surg Hx/FS Hx/Imm Hx Previously Healthy: Yes - Surgical History Surgical History: Yes Surgery Procedure, Year, and Place: 2 C SECTIONS. ANGY LEGS - VARICOSE VEIN. Rt WRIST - GANGLION CYST - Family History Known Family History: Positive: Other - breast cancer - Social History Alcohol Use: Occasionally Substance Use Type: None Smoking Status (MU): Never Smoked Tobacco - Immunization History Vaccination Up to Date: Yes Review of Systems All Other Systems Reviewed And Are Negative: Yes Constitutional: Positive: Other - see hpi Skin: Positive: Negative Eyes: Positive: Negative ENT: Positive: Other - see hpi Respiratory: Positive: Cough, Other - see hpi Cardiovascular: Positive: Other - see hpi Gastrointestinal: Positive: Negative Genitourinary: Positive: Negative Motor: Positive: Negative Neurovascular: Positive: Negative Musculoskeletal: Positive: Edema Neurological: Positive: Negative Psychological: Positive: Negative Is Patient Immunocompromised?: No Physical Exam Triage Information Reviewed: Yes Appearance: Well-Appearing, No Pain Distress, Well-Nourished Vital Signs: Initial Vital Signs Temp 97.9 F 04/12/19 09:28 Pulse 63 04/12/19 09:28 Resp 16 04/12/19 09:28 BP 147/87 04/12/19 09:28 Pulse Ox 100 04/12/19 09:28 Vital Signs Reviewed: Yes Eye Exam: Normal Eyes: Positive: Conjunctiva Clear ENT: Positive: Pharynx normal, TMs normal, Hoarse voice Neck: Positive: Supple Respiratory: Positive: Lungs clear, Normal breath sounds, No respiratory distress Cardiovascular: Positive: RRR Musculoskeletal: Positive: Strength Intact, ROM Intact, Edema @ - Bilateral pedal edema greater on the left than the right. No calf tenderness. Neurological: Positive: Alert Psychological: Positive: Normal Response To Family Skin Exam: Normal Respiratory Course/Dx - Course Course Of Treatment: Zigzag Appliquer: Loco Patel ([id number]) Vice President Of Product Marketing: SHAD (NUANCE) Report Date: 04/12/2019 12:00:00 Report Status: Final Start of Report Content Patient Name: ROBEL DEGROOT Medical Record#: [id number] Ordering Physician: Jeronimo Riddle MD Acct.#: [id number] : 1960 Age : 59 Sex: F [facility] Exam Date: 04/12/19 100 ADM Status : REG ER Order Information: VL LOWER EXT VEINS BILATERAL Accession Number: [id number] CPT: 76705 HISTORY: Bilateral lower extremity edema TECHNIQUE: Multiple transverse and longitudinal ultrasound images were obtained of the veins of the bilateral lower extremities using grayscale, color Doppler, and spectral Doppler imaging with and without compression and with augmentation. FINDINGS: VEINS: The common femoral vein, deep femoral vein, femoral vein and popliteal vein are compressible throughout their course, with normal flow on color Doppler imaging and normal response to augmentation on spectral Doppler imaging. SOFT TISSUES: Grossly normal. No large popliteal fossa cyst was identified. IMPRESSION: No sonographic evidence of deep vein thrombosis. <Electronically signed by Loco Patel MD in OV> 04/12/191156 Dictated By: Loco Patel MD Dictated Date/ Time: 04/12/191150 Transcribed Date/Time: 04/12/191150 Copy to: CC:Ambrocio Mccrary MD; Jeronimo Riddle MD Imaging - [facility] [address] [facility] [address] [place], [place] [id number] [place] [id number] ph ) ph ([phone]) ph ([phone]) End of Report Content Zigzag Appliquer: Mark Antunez F, ([id number]) Vice President Of Product Marketing: SHAD, ( NUANCE) Report Date: 04/12/2019 10:51:00 Report Status: Final ====== Start of Report Content Patient Name: ROBEL DEGROOT Medical Record#: [id number] Ordering Physician: Jeronimo Riddle MD Acct.#: [id number] : 01/1960 Age: 59 Sex: F Location: [facility] [place] Exam Date: 04/12/19 1006 ADM Status: REG ER Order Information: CT CHEST W/O Accession Number: [id number] CPT: 81394 INDICATION: Cough times one year, hemoptysis and difficulty swallowing. COMPARISON: Comparison is made with a prior chest x-ray study from November 06, 2018. TECHNIQUE: A CT scan of the chest was performed without intravenous contrast. Contiguous axial sections were obtained from the lung apices through the lung bases. Images were reconstructed in the coronal and sagittal planes. FINDINGS: LUNGS: There is mild atelectasis is in the lingula at the left lung base. There is a small 2 mm pulmonary nodule present in the left lower lobe seen on axial image #36. The lungs are otherwise clear. No pleural effusion is present. MEDIASTINUM: No significant enlarged mediastinal or hilar lymph nodes are seen. HEART: The heart is within normal limits in size. No pericardial effusion is present. THORACIC AORTA: The thoracic aorta is normal in caliber. ABDOMEN: No acute findings are seen on the visualized portion of the upper abdomen. BONES: No significant focal osseous abnormality is seen. IMPRESSION: 1. NO EVIDENCE FOR ACUTE FINDING. 2. LOW SUSPICION SMALL 2 MM PULMONARY NODULE IN THE LEFT LOWER LOBE. IF THE PATIENT HAS RISK FACTORS RECOMMEND A FOLLOW-UP LOW-DOSE NONCONTRAST CT OF THE CHEST IN ONE YEARS TIME. < Electronically signed by Mark Antunez MD in OV> 04/12/19 1046 Dictated By: Mark Antunez MD Dictated Date/Time: 04/12/19 1038 Transcribed Date/Time: 1038 Copy to: CC:Ambrocio Mccrary MD; Jeronimo Riddle MD Imaging - [facility] Imaging - [facility] Imaging - [facility] [address] [address] ph ([phone]) ph ([phone]) ph ([phone]) ===== End of Report Content I discussed the CT and venous Dopplers with the patient. We discussed the pulmonary nodule and the appropriate follow-up with her primary care doctor or pulmonology. For the fatigue and overall management of the patient's condition will have the patient follow-up with her primary care doctor. With the change in voice we'll have the patient follow-up with ENT. For the shortness of breath, hemoptysis and pulmonary nodule have the patient follow-up with pulmonology. For the dysphagia we'll have the patient follow-up with gastroenterology. We discussed that we have not completely rule out the possibility of pulmonary embolus. For evaluation of possible pulmonary embolus recommended follow-up emergency department and the patient at this time declined. GERD could cause the patient's shortness of breath dysphagia and change in voice. Will treat the possibility of GERD with omeprazole 20 mg by mouth twice a day for 15 days. We'll also treat for the possibility of bronchitis with bronchospasm with azithromycin and prednisone and albuterol. If the patient worsens she needs immediate evaluation in the emergency department. - Differential Dx/Diagnosis Provider Diagnosis: Change in voice, Dysphagia, Shortness of breath, Hemoptysis, Pulmonary nodule, Edema, Fatigue Discharge ED - Sign-Out/Discharge Documenting (check all that apply): Patient Departure All imaging exams completed and their final reports reviewed: Yes - Discharge Plan Condition: Stable Disposition: HOME Prescriptions: Albuterol HFA INHALER* [Ventolin HFA Inhaler*] 2 puff INH Q4H PRN #1 mdi PRN Reason: Shortness Of Breath Azithromyxin MANNY (NF) [Z-Manny (Zithromax) 250 mg tabs #6] 2 tab PO .TODAY, THEN 1 DAILY #6 tab Omeprazole 20 mg PO BID #30 capsule. predniSONE TAB* [Deltasone 20 MG TAB*] 40 mg PO DAILY #10 tab Patient Education Materials: Hemoptysis (ED), Leg Edema (ED), Fatigue (ED), Pulmonary Nodules (ED), Dysphagia (ED), Shortness of Breath (ED) Referrals: Ambrocio Mccrary MD [Primary Care Provider] - Kenny Gross MD [Medical Doctor] - Emeka Marie DO [Doctor of Osteopathy] - Patricia Thomas MD [Medical Doctor] - Additional Instructions: FOLLOW UP WITH YOUR PRIMARY CARE DOCTOR. Follow-up with ENT, Dr Gross, for your change in voice. Follow-up with gastroenterology, Dr Marie, for urinary difficulty swallowing. Follow-up with pulmonology, Dr Thomas, for your shortness of breath, hemoptysis and pulmonary nodule. GET REEVALUATED SOONER IF NOT IMPROVING OR GO TO THE EMERGENCY DEPARTMENT IF WORSE; DIFFICULTY BREATHING, UNABLE TO SWALLOW, YOU FEEL ILL OR ANY QUESTIONS OR CONCERNS. - Billing Disposition and Condition Condition: STABLE Disposition: Home
[2019-04-12 11:41] VITALS: BP 147/73
[2019-04-12 18:08] LABS: ABS Basophils 0.1 10^3/ul (0-0.2); ABS Eosinophils 0.2 10^3/ul (0-0.6); ABS Lymphocytes 1.1 10^3/ul (1.0-4.8); ABS Monocytes 0.4 10^3/ul (0-0.8); ABS Neutrophils 3.8 10^3/ul (1.5-7.7); Eosinophil % 3.3 %; Hematocrit 44 % (35-47); Hemoglobin 14.6 g/dL (12.0-16.0); Lymphocyte % 19.3 %; Mean Corpuscular HGB Conc 34 g/dL (31-36); Mean Corpuscular Hemoglobin 31 pg (27-31); Mean Corpuscular Volume 93 fL (80-97); Mean Platelet Volume 9.1 fL (7.4-10.4); Nucleated Red Blood Cells % 0.2; Platelet Count 246 10^3/uL (150-450); Red Blood Count 4.71 10^6 /uL (3.70-4.87); Red Cell Distribution Width 14 % (10-15); White Blood Count 5.6 10^3/uL (3.5-10.8)
[2019-04-12 18:13] LABS: Albumin 4.3 g/dL (3.2-5.2); Calcium 9.6 mg/dL (8.6-10.3); Potassium 4.1 mmol/L (3.5-5.0); Total Bilirubin 0.8 mg/dL (0.2-1.0)
[2019-04-12 18:19] LABS: Albumin/Globulin Ratio 1.8 (1-3); BUN/Creatinine Ratio 18.6 (8-20); C Reactive Protein 2.39 mg/L (<8.01); EGFR African American 104.4 (>60); EGFR Non-African American 86.2 (>60); Globulin 2.4 g/dL (2-4); Total Protein 6.7 g/dL (6.4-8.9)
[2019-04-12 18:32] LABS: TSH (Thyroid Stimulating Horm) 1.85 mcIU/mL (0.34-5.60)
== END 2019-04-12 12:49 | disposition home or self-care (01) ==
LOC: UCCORT 09:08
DX: R49.9 Unspecified voice and resonance disorder (principal); R13.10 Dysphagia, unspecified; R06.02 Shortness of breath; R04.2 Hemoptysis; R60.0 Localized edema; R53.83 Other fatigue; R91.1 Solitary pulmonary nodule; R05 Cough; Z88.5 Allergy status to narcotic agent
CPT/HCPCS: 36415; 71250; 80053; 84443; 85025; 86140; 93970; 99212; G0463